=== PATIENT | female | born 1945 | race Caucasian/White ===

== ENCOUNTER 2017-02-16 17:42 | Emergency (ER) | payer BC ==
[~2017-02-16 17:42] MED LIST: ACCUNEB INH; ACET500CAP PO; ADVAIR250 INH; ADVIL PO; ALBUTEROL; ALBUTEROL0.63 MG/3 INH; AMOXIL500 MG PO; APRES10B PO; ASAB PO; AUG875 PO; AZO-STANDARD95 MG PO; BAC PO; BREO ELLIPTA INH; CARDCD120 PO; CARDCD180 PO; CARDIZEM PO; CAT1 PO; CHERATUSSIN PO; CIP5 PO; COLCRYS0.6 MG PO; COREG12 PO; COREG25 PO; COREG6 PO; CYANO1000T PO; DETROL2 PO; DITRO5 PO; DITROPAN XL10 MG PO; DSS PO; DUONEB INH; ELIQUIS 5 MG TAB5 MG PO; FENESIN IR400 MG PO; FLECAINIDE100 MG PO; FLOVENT INH; FLOVENT110 INH; FLOVENT220 INH; HALF81 PO; IMDUR120 PO; IMDUR60 PO; IPRATROPIUM; KLONO1 PO; KLONO5 PO; LEVAQUIN5T PO; LEVOTHYROXIN150 MCG PO; LIPITOR40 PO; LIPITOR80 MG PO; MACROBID PO; MONODOX100 MG PO; MULTIPLE VIT PO; MULTIVITAMI1 PO; NAMENDA10 MG PO; NEUR300 PO; NICODERM C14 MG/24 H TOP; NITROMIST400 MCG SL; NITROSPRAY SL; NITROSTAT0.4 MG SL; NORCO1 TA1 PO; NORV10 PO; NTG150 SL; P10 PO; P20 PO; PAXIL40 MG PO; PR25 PO; PROAIR HFA INH; PROLOP100 PO; PROTONIX PO; PROVENTSOL INH; PROZAC40 MG PO; PYR200 PO; RISP1 PO; RISP3 PO; RISPERDAL M PO; SINGULAIR1 PO; SPIRIVA INH; STOOL SOFTEN100 MG PO; STOOL SOFTENER OTC PO; SYN.15 PO; SYN1 PO; SYNTHROID200 MCG PO; T PO; TESS PO; TRAZ100 PO; TRAZ50 PO; TRAZODONE PO; URISPAS100 MG PO; VENTOLIN HFA INH; WELL100 PO; X5 PO; XANAX1 MG PO; ZESTORETIC PO; ZOFRAN4 PO; [UNRECOGNIZED DRUG - OTHER]; [UNRECOGNIZED DRUG - OTHER]
[2017-02-17] MEDS ORDERED: LEVOTHYROXIN150 MCG PO (07:45)
[2017-05-26] MEDS ORDERED: LEVAQUIN5T PO (14:59)
[2017-07-02] MEDS ORDERED: HABIT21 TOP (07:23)
== END 2017-02-16 17:46 | disposition home or self-care (01) ==
LOC: ER 17:42
DX: K94.13 Enterostomy malfunction (principal); J44.9 Chronic obstructive pulmonary disease, unspecified; I10 Essential (primary) hypertension; E78.5 Hyperlipidemia, unspecified; F31.9 Bipolar disorder, unspecified; F41.9 Anxiety disorder, unspecified; F17.200 Nicotine dependence, unspecified, uncomplicated; I48.92 Unspecified atrial flutter; Z86.73 Personal history of transient ischemic attack (TIA), and cerebral infarction without residual deficits; Z90.710 Acquired absence of both cervix and uterus; Z88.5 Allergy status to narcotic agent; Z79.899 Other long term (current) drug therapy
CPT/HCPCS: 99282

== ENCOUNTER 2017-03-09 17:31 | Emergency (ER) | payer BC ==
[2017-03-09 17:32] LABS: BASOPHILS 0.5 %; BASOPHILS ABSOLUTE 0.03 10/3/uL (0.0-0.16); EOSINOPHILS ABSOLUTE 0.19 10/3/uL (0.0-0.53); HEMATOCRIT 30.6 % (36.0-48.0); HEMOGLOBIN 9.3 g/dL (12.0-16.0); IMMATURE GRANULOCYTES 0.3 %; IMMATURE GRANULOCYTES ABSOLUTE 0.02 10/3/uL (0.0-0.11); LYMPHOCYTES 26.9 %; LYMPHOCYTES ABSOLUTE 1.72 10/3/uL (0.67-4.30); MANUAL DIFF NO %; MEAN CORPUS HGB CONC 30.4 g/dL (32.0-36.0); MEAN CORPUSCULAR HEMOGLOB 28.2 pg (26.0-34.0); MEAN CORPUSCULAR VOLUME 92.7 fL (80-100); MEAN PLATELET VOLUME 9.6 fL (9.2-13.0); MONOCYTES 13.5 %; MONOCYTES ABSOLUTE 0.86 10/3/uL (0.21-1.20); NEUTROPHILS 55.8 %; NEUTROPHILS ABSOLUTE 3.57 10/3/uL (2.02-8.40); PLATELET COUNT 254 10/3/uL (150-400); RBC DISTRIBUTION WIDTH 14.8 % (12.0-16.0); WHITE BLOOD CELLS 6.4 10/3/uL (4.5-10.5)
[2017-03-09 17:41] LABS: INTERNATIONAL NORMAL RATI 1.1 UNITS (-); PARTIAL THROMBO TIME 29.7 SEC (22.5-37.2); PROTIME (NOT ORD) 14.1 SEC (12.0-14.5)
[2017-03-09 17:51] LABS: BUN (BLOOD UREA NITROGEN) 5 MG/DL (6-23); CALCIUM, SERUM 8.8 MG/DL (8.5-10.4); CHEST PAIN PROFILE TAT 0 Hrs 23 Mins; CHLORIDE, SERUM 100 MMOL/L (96-112); CO2 (CARBON DIOXIDE) 33 MMOL/L (24-34); CREATININE 0.57 MG/DL (0.55-1.02); GFR AFRICAN AMERICAN 110 ML/MIN (>=60); GFR NON AFRICAN AMERICAN 95 ML/MIN (>=60); GLUCOSE, SERUM 89 MG/DL (60-99); POTASSIUM, SERUM 4.1 MMOL/L (3.5-5.3); SODIUM, SERUM 140 MMOL/L (135-148); TROPONIN I <0.02 NG/ML (<0.05)
[2017-03-09 17:51] LABS: ASCORBIC ACID (UR NOT ORDER) NEG (NEG); BILIRUBIN, URINE NEGATIVE (NEG); ER URINALYSIS TAT 0 Hrs 07 Mins; KETONE, URINE NEGATIVE (NEG); LEUKOCYTE ESTERASE(NOT OR LARGE (NEG); NITRITE (URINE) NEG (NEG); WBC (NOT ORDERED) (RFLEX) > 182 (0-5)
[2017-05-26] MEDS ORDERED: LEVAQUIN5T PO (14:59)
[2017-07-02] MEDS ORDERED: HABIT21 TOP (07:23)
== END 2017-03-09 21:34 | disposition home or self-care (01) ==
LOC: ER 17:31
PROVIDERS: Physician Assistant
DX: J44.1 Chronic obstructive pulmonary disease with (acute) exacerbation (principal); N39.0 Urinary tract infection, site not specified; I10 Essential (primary) hypertension; F31.9 Bipolar disorder, unspecified; F17.200 Nicotine dependence, unspecified, uncomplicated; Z86.73 Personal history of transient ischemic attack (TIA), and cerebral infarction without residual deficits; Z88.8 Allergy status to other drugs, medicaments and biological substances; Z79.899 Other long term (current) drug therapy
CPT/HCPCS: 71010; 80048; 81001; 83735; 83880; 84484; 85025; 85610; 85730; 87077; 87086; 87186; 93005; 94640; 96365; 96375; 99284; A9270-GY; J1956